=== PATIENT | male | born 2000 | race Caucasian/White ===

== ENCOUNTER 2021-06-18 07:07 | Emergency (ER) | payer OTHER ==
[~2021-06-18] VITALS: Ht 162.6 cm; Wt 99.8 kg
[2021-06-18 07:14] VITALS: BP 142/67
--- NOTE | 2021-06-18 07:18 | NUR ---
Jesus perez in [facility] - 06/18/21 at 0719 by [facility] pt ambulated to bed 08 with steady gait
--- NOTE | 2021-06-18 07:18 | NUR ---
Patient ambulated to bed 06 with steady/even gait.
--- NOTE | 2021-06-18 07:35 | NUR ---
20 y/o male, c/o cough x 1 month and R shoulder pain since 0200 this morning. Patient reports 10/10, sharp/intermittent, radiating to RLQ. Patient states alleviates with rest, worsens with movement. Abd soft/round/non-tender. Pt denies trauma, injury, heavy lifting, dysuria, vomiting, dirarhea, constipation. Denies medications prior to arrival. Bed locked in lowest position, side rails x 1. pmh: hidradenitis suppurativa med: denies nka
--- NOTE | 2021-06-18 07:45 | NUR ---
Note undone in EDM - 06/18/21 at 0806 by MEDALVINO 20 y/o male, c/o cough x 1 month and R shoulder pain since 0200 this morning. Patient reports 12/19, sharp/intermittent, radiating to RLQ. Patient states alleviates with rest, worsens with movement. Abd soft/round/non-tender. Pt denies trauma, injury, heavy lifting, dysuria, vomiting, dirarhea, constipation. Denies medications prior to arrival. Bed locked in lowest position, side rails x 1. pmh: hidradenitis suppurativa med: denies roxannaa
--- NOTE | 2021-06-18 07:45 | NUR ---
Dr. Miner is evaluating patient at bedside
[2021-06-18] MEDS ORDERED: KETOROLAC 30 MG/ML VIAL IM ONE (07:50)
--- NOTE | 2021-06-18 08:03 | NUR ---
RAD at bedside
[2021-06-18 08:16] LABS: BASOPHILS # (AUTO) 0.1 K/uL (0.00-0.22); BASOPHILS % (AUTO) 0.6 % (0.0-2.0); EOSINOPHILS # (AUTO) 0.4 K/uL (0-0.4); EOSINOPHILS % (AUTO) 1.9 % (0.0-4.0); HEMATOCRIT 37.5 % (36-52); HEMOGLOBIN 12.1 g/dL (12.0-18.0); LYMPHOCYTES # (AUTO) 2.3 K/uL (2.0-11.5); LYMPHOCYTES % (AUTO) 12.6 % (20.5-51.1); MEAN CORPUSCULAR HEMOGLOBIN 26 pg (27-31); MEAN CORPUSCULAR HGB CONC 32 g/dL (33-37); MEAN CORPUSCULAR VOLUME 79.8 fL (80-94); MONOCYTES # (AUTO) 1.1 K/uL (0.8-1.0); MONOCYTES % (AUTO) 6.2 % (1.7-9.3); NEUTROPHILS # (AUTO) 14.6 K/uL (1.8-7.7); NEUTROPHILS % (AUTO) 78.7 % (42.2-75.2); PLATELET COUNT (AUTO) 409 K/uL (140-450); RED BLOOD CELL COUNT(AUTO) 4.71 MIL/uL (4.20-6.10); RED CELL DISTRIBUTION WIDTH 14.2 % (11.6-13.7); WHITE BLOOD COUNT (AUTO) 18.5 K/uL (4.5-11.0)
[2021-06-18 08:38] LABS: ASPARTATE AMINOTRANSFERASE 17 U/L (15-37); CARBON DIOXIDE 27.2 mmol/L (21-32); CHLORIDE 99 mmol/L (98-107); CREATININE 0.9 mg/dL (0.6-1.3); GFR ARICAN-AMERICAN 140 mL/min (>90); GLUCOSE 90 mg/dL (74-106); LIPASE 54 U/L (73-393); POTASSIUM 4.2 mmol/L (3.5-5.1); SODIUM SERUM 134 mmol/L (136-145); TOTAL BILIRUBIN 0.4 mg/dL (0.0-1.0); UREA NITROGEN, BLOOD 11 mg/dL (7-18)
--- NOTE | 2021-06-18 08:39 | NUR ---
Patient states + relief to pain; 0/10 at this time. All needs met.
--- NOTE | 2021-06-18 09:45 | NUR ---
Patient taken via wheelchair for CT scan.
--- NOTE | 2021-06-18 10:03 | NUR ---
Patient returned from CT by wheelchair.
--- NOTE | 2021-06-18 10:04 | NUR ---
Patient ambulated to restroom for UA.
--- NOTE | 2021-06-18 10:06 | NUR ---
UA collected, walked to lab and handed to CPT. Marly
[2021-06-18] MEDS ORDERED: BENZ200C4 PO (10:58)
[2021-06-18 11:49] LABS: APPEARANCE,URINE CLEAR (CLEAR); BILIRUBIN,URINE NEGATIVE (NEGATIVE); BLOOD, URINE NEGATIVE (NEGATIVE); LEUKOCYTE ESTERASE ,URINE NEGATIVE (NEGATIVE); NITRITE, URINE NEGATIVE (NEGATIVE); PH,URINE 6.5 (5.0-9.0); UGLUCOSE NEGATIVE (NEGATIVE)
[2021-06-18 11:51] LABS: COLOR,URINE YELLOW (YELLOW)
[2021-06-18 11:53] VITALS: BP 107/75
--- NOTE | 2021-06-18 12:03 | NUR ---
Patient discharged with v/s stable. Written and verbal after care instructions given and explained for Influenza. Patient alert, oriented and verbalized understanding of instructions. Ambulatory with steady gait. All questions addressed prior to discharge. ID band removed. Patient advised to follow up with PMD. Rx of Benzonatate given. Patient educated on indication of medication including possible reaction and side effects. Opportunity to ask questions provided and answered.
== END 2021-06-18 12:03 | disposition home or self-care (01) ==
LOC: MED 07:07
DX: J10.1 Influenza due to other identified influenza virus with other respiratory manifestations (principal); Z20.822 Contact with and (suspected) exposure to COVID-19; D72.829 Elevated white blood cell count, unspecified; Z79.899 Other long term (current) drug therapy
CPT/HCPCS: 36415; 71045; 74177; 80053; 81003; 83690; 84484; 85025; 87426; 87804; 93005; 96372; 99285; J1885; Q9967

== ENCOUNTER 2023-02-17 00:19 | Emergency (ER) | payer OTHER ==
[~2023-02-17] VITALS: Ht 167.6 cm; Wt 108.0 kg
[~2023-02-17 00:19] MED LIST: BENZ200C4 PO
[2023-02-17 01:34] VITALS: BP 110/71; PULSE 98; RESP 16; TEMP 98.2; O2SAT 97
[2023-02-17 03:03] LABS: APPEARANCE,URINE CLEAR (CLEAR); BILIRUBIN,URINE NEGATIVE (NEGATIVE); BLOOD, URINE NEGATIVE (NEGATIVE); COLOR,URINE YELLOW (YELLOW); LEUKOCYTE ESTERASE ,URINE NEGATIVE (NEGATIVE); NITRITE, URINE NEGATIVE (NEGATIVE); PROTEIN,URINE NEGATIVE (NEGATIVE); UGLUCOSE NEGATIVE (NEGATIVE); UROBILINOGEN,URINE 0.2 EU/dL (0.2 - 1)
[2023-02-17 08:05] VITALS: BP 123/75; PULSE 82; RESP 16; TEMP 95; O2SAT 99
[2023-02-17] MEDS ORDERED: KETOROLAC 30 MG/ML VIAL IM ONE (08:35)
[2023-02-17] MEDS ORDERED: IBUP-2213 PO (09:18)
== END 2023-02-17 09:31 | disposition home or self-care (01) ==
LOC: MED 00:19
DX: L73.2 Hidradenitis suppurativa (principal); Z79.899 Other long term (current) drug therapy
CPT/HCPCS: 76870; 81003; 87086; 87491; 96372; 99285; J1885; Q0092